=== PATIENT | male | born 1990 | race African-American/Black ===

== ENCOUNTER 2020-08-29 02:43 | Emergency (ER) | payer BC ==
[2020-08-29 04:36] VITALS: BMI 22.5
[2020-08-29 06:50] VITALS: BP 130/79; PULSE 70; TEMP 98.7
== END 2020-08-29 06:51 | disposition short-term general hospital (02) ==
LOC: JER 02:43
DX: F11.10 Opioid abuse, uncomplicated (principal)
CPT/HCPCS: 82962; 93005; 93010; 99283-25

== ENCOUNTER 2021-08-04 17:22 | Emergency (ER) | payer BC ==
[2021-08-04 17:28] VITALS: BP 99/67; PULSE 70; TEMP 98.6; BMI 20.7
[2021-08-04] MEDS ORDERED: SODIUM CHLORIDE 0.9% 500 ML INFUS.BAG IV ONE (20:54)
== END 2021-08-04 21:39 | disposition home or self-care (01) ==
LOC: JER 17:22
DX: F19.10 Other psychoactive substance abuse, uncomplicated (principal)
CPT/HCPCS: 99283-25

== ENCOUNTER 2021-08-04 22:19 | Inpatient (IN) | payer BC ==
[2021-08-04 23:03] VITALS: BMI 20.7
[2021-08-04] MEDS ORDERED: NALOXONE HCL 0.4 MG/ML VIAL IM PRN (23:05)
[2021-08-04] MEDS ORDERED: MAGNESIUM CITRATE 300 ML BOTTLE PO PRN (23:05)
[2021-08-04] MEDS ORDERED: IBUPROFEN 400 MG TABLET (FP) PO PRN (23:05)
[2021-08-04] MEDS ORDERED: BENZOCAINE/MENTHOL (CHLORASEPTIC ) LOZENGE MM PRN (23:05)
[2021-08-04] MEDS ORDERED: NICOTINE POLACRILEX 2 MG GUM BUC PRN (23:05)
[2021-08-04] MEDS ORDERED: LOPERAMIDE HCL 2 MG CAPSULE PO PRN (23:05)
[2021-08-04] MEDS ORDERED: hydrOXYzine PAMOATE 25 MG CAPSULE (FP) PO PRN (23:05)
[2021-08-04] MEDS ORDERED: P-EPHED 60MG/TRIPROLIDI 2.5MG TABLET PO PRN (23:05)
[2021-08-04] MEDS ORDERED: BISMUTH SUBSALICYLATE 524 MG/30 ML PO PRN (23:05)
[2021-08-04] MEDS ORDERED: ONDANSETRON *ODT* 4 MG TABLET SL PRN (23:05)
[2021-08-04] MEDS ORDERED: MAG HYDROX/AL HYDROX/SIMETH 30 ML UNIT-DOSE CUP PO PRN (23:05)
[2021-08-04] MEDS ORDERED: guaiFENesin 200 MG/10 ML 10 ML UNIT-DOSE CUPS PO PRN (23:05)
[2021-08-04] MEDS ORDERED: ACETAMINOPHEN 325 MG TABLET (FP) PO PRN ×2 (23:05)
[2021-08-04] MEDS ORDERED: MAGNESIUM HYDROX 2400MG/30ML ORAL SUSPENSION 30 ML CUP PO PRN (23:05)
[2021-08-04] MEDS ORDERED: IBUPROFEN 600 MG TABLET (FP) PO PRN (23:05)
[2021-08-04] MEDS ORDERED: DICYCLOMINE HCL 10 MG CAPSULE PO PRN (23:05)
[2021-08-04] MEDS ORDERED: NALOXONE HCL (KLOXXADO) 8 MG SPRAY NS PRN (23:05)
[2021-08-05] MEDS: PRENATAL VITAMINS W/ FOLIC ACID TABLET (FP) PO SCH (10:13)
[2021-08-05] MEDS: NICOTINE 14 MG/24 HOURS TOPICAL PATCH TD SCH (10:14)
[2021-08-05] MEDS ORDERED: methaDONE HCL 10 MG TABLET (FOR DETOX USE ONLY) PO ONE (10:20)
[2021-08-05] MEDS ORDERED: cloNIDine HCL 0.1 MG TABLET PO PRN (10:20)
[2021-08-05 14:21] LABS: CALCIUM 8.8 mg/dL (8.5-10.1); HEMATOCRIT 39.8 % (35.4-49); MCH 27.4 pg (25.7-33.7); MCHC 32.7 g/dl (32.0-35.9); MEAN CELL VOLUME 83.9 fl (80-96); MEAN PLT VOLUME 7.6 fl (7.5-11.1); PLATELET COUNT 322 10^3/uL (134-434); RBC 4.74 M/mm3 (4.00-5.60); RDW 14.2 % (11.9-15.9)
[2021-08-05 14:22] LABS: ALBUMIN 3.1 g/dl (3.4-5.0); BLOOD UREA NITROGEN 20.1 mg/dL (7-18)
[2021-08-05 14:26] LABS: BILIRUBIN,TOTAL 0.2 mg/dL (0.2-1); CREATININE 0.9 mg/dL (0.55-1.3); TOT PROT 6.4 g/dl (6.4-8.2)
[2021-08-05] MEDS: MELATONIN 5 MG TABLETS PO SCH (22:54)
[2021-08-05] MEDS: THIAMINE HCL 100 MG TABLET (FP) PO SCH (22:54)
[2021-08-05] MEDS: METHOCARBAMOL 500 MG TABLET PO PRN (22:56)
[2021-08-06] MEDS ORDERED: methaDONE HCL 10 MG TABLET (FOR DETOX USE ONLY) ONE (10:04)
[2021-08-06] MEDS: NICOTINE 14 MG/24 HOURS TOPICAL PATCH TD SCH (10:35)
[2021-08-06] MEDS: METHOCARBAMOL 500 MG TABLET PO PRN ×2 (10:35→22:57)
[2021-08-06] MEDS: PRENATAL VITAMINS W/ FOLIC ACID TABLET (FP) PO SCH (10:35)
[2021-08-06] MEDS: diazePAM 5 MG TABLET PO PRN ×2 (15:31→22:53)
[2021-08-06] MEDS: MELATONIN 5 MG TABLETS PO SCH (22:53)
[2021-08-06] MEDS: THIAMINE HCL 100 MG TABLET (FP) PO SCH (22:53)
[2021-08-07] MEDS: diazePAM 5 MG TABLET PO PRN ×2 (09:59→22:22)
[2021-08-07] MEDS ORDERED: methaDONE HCL 10 MG TABLET (FOR DETOX USE ONLY) PO ONE (10:00)
[2021-08-07] MEDS: METHOCARBAMOL 500 MG TABLET PO PRN (10:00)
[2021-08-07] MEDS: PRENATAL VITAMINS W/ FOLIC ACID TABLET (FP) PO SCH (10:01)
[2021-08-07] MEDS: NICOTINE 14 MG/24 HOURS TOPICAL PATCH TD SCH (10:02)
[2021-08-07] MEDS: MELATONIN 5 MG TABLETS PO SCH (22:19)
[2021-08-07] MEDS: THIAMINE HCL 100 MG TABLET (FP) PO SCH (22:19)
[2021-08-08 09:30] VITALS: BP 132/90; PULSE 115; TEMP 97.7
[2021-08-08] MEDS: NICOTINE 14 MG/24 HOURS TOPICAL PATCH TD SCH (10:38)
[2021-08-08] MEDS: PRENATAL VITAMINS W/ FOLIC ACID TABLET (FP) PO SCH (10:39)
[2021-08-09] MEDS ORDERED: methaDONE HCL 10 MG TABLET (FOR DETOX USE ONLY) PO ONE (10:00)
== END 2021-08-08 10:15 | disposition left against medical advice (07) | DRG 770 ==
LOC: YASAS 22:19 → Y3N 23:47
PROVIDERS: ADMIT Allergy & Immunology; ATTEND Surgery
PROC: HZ2ZZZZ Detoxification Services for Substance Abuse Treatment (ICD-10-PCS; principal; 2021-08-04)
DX: F11.23 Opioid dependence with withdrawal (principal); F14.20 Cocaine dependence, uncomplicated; F15.20 Other stimulant dependence, uncomplicated; F12.20 Cannabis dependence, uncomplicated; F17.210 Nicotine dependence, cigarettes, uncomplicated; F19.24 Other psychoactive substance dependence with psychoactive substance-induced mood disorder; J45.909 Unspecified asthma, uncomplicated; K21.9 Gastro-esophageal reflux disease without esophagitis; Z91.19 Patient's noncompliance with other medical treatment and regimen; Z59.01 Sheltered homelessness
CPT/HCPCS: 36415; 80053; 85027; 86780; 87811; C9803-CS; J0735; U0003; U0005

== ENCOUNTER 2021-09-05 16:33 | Inpatient (IN) | payer BC ==
[2021-09-05 19:46] VITALS: BMI 21.2
[2021-09-05] MEDS ORDERED: cloNIDine HCL 0.1 MG TABLET PO PRN (21:24)
[2021-09-05] MEDS ORDERED: ONDANSETRON *ODT* 4 MG TABLET SL PRN (21:24)
[2021-09-05] MEDS ORDERED: BISMUTH SUBSALICYLATE 524 MG/30 ML PO PRN (21:24)
[2021-09-05] MEDS ORDERED: DICYCLOMINE HCL 10 MG CAPSULE PO PRN (21:24)
[2021-09-05] MEDS ORDERED: LOPERAMIDE HCL 2 MG CAPSULE PO PRN (21:24)
[2021-09-05] MEDS ORDERED: IBUPROFEN 400 MG TABLET (FP) PO PRN (21:24)
[2021-09-05] MEDS ORDERED: MAGNESIUM CITRATE 300 ML BOTTLE PO PRN (21:24)
[2021-09-05] MEDS ORDERED: NICOTINE 10 MG CARTRIDGE (INHALER) IH PRN (21:24)
[2021-09-05] MEDS ORDERED: ACETAMINOPHEN 325 MG TABLET (FP) PO PRN ×2 (21:24)
[2021-09-05] MEDS ORDERED: BENZOCAINE/MENTHOL (CHLORASEPTIC ) LOZENGE MM PRN (21:24)
[2021-09-05] MEDS ORDERED: IBUPROFEN 600 MG TABLET (FP) PO PRN (21:24)
[2021-09-05] MEDS ORDERED: MAGNESIUM HYDROX 2400MG/30ML ORAL SUSPENSION 30 ML CUP PO PRN (21:24)
[2021-09-05] MEDS ORDERED: MAG HYDROX/AL HYDROX/SIMETH 30 ML UNIT-DOSE CUP PO PRN (21:24)
[2021-09-05] MEDS ORDERED: methaDONE HCL 10 MG TABLET (FOR DETOX USE ONLY) ONE (22:10)
[2021-09-05] MEDS: THIAMINE HCL 100 MG TABLET (FP) PO SCH (22:11)
[2021-09-05] MEDS: MELATONIN 5 MG TABLETS PO SCH (22:11)
[2021-09-05] MEDS ORDERED: methaDONE HCL 10 MG TABLET (FOR DETOX USE ONLY) PO ONE (22:15)
[2021-09-06] MEDS ORDERED: methaDONE HCL 10 MG TABLET (FOR DETOX USE ONLY) ONE (09:53)
[2021-09-06] MEDS ORDERED: ALBUTEROL SO4 HFA INHALER IH PRN (09:56)
[2021-09-06 10:34] LABS: HEMATOCRIT 37.8 % (35.4-49); HEMOGLOBIN 12.5 GM/dL (11.7-16.9); MCH 27.6 pg (25.7-33.7); MEAN CELL VOLUME 83.6 fl (80-96); PLATELET COUNT 354 10^3/uL (134-434); RBC 4.52 M/mm3 (4.00-5.60); RDW 14.7 % (11.9-15.9); WHITE BLOOD COUNT 3.9 K/mm3 (4.0-10.0)
[2021-09-06 10:42] LABS: ALBUMIN 3.2 g/dl (3.4-5.0)
[2021-09-06 10:43] LABS: BLOOD UREA NITROGEN 14.2 mg/dL (7-18)
[2021-09-06 10:44] LABS: BILIRUBIN,TOTAL 0.3 mg/dL (0.2-1); CALCIUM 9.1 mg/dL (8.5-10.1); TOT PROT 6.4 g/dl (6.4-8.2)
[2021-09-06] MEDS: PRENATAL VITAMINS W/ FOLIC ACID TABLET (FP) PO SCH (13:26)
[2021-09-06] MEDS: NICOTINE 14 MG/24 HOURS TOPICAL PATCH TD SCH (13:26)
[2021-09-06] MEDS: METHOCARBAMOL 500 MG TABLET PO PRN (13:41)
[2021-09-06] MEDS: THIAMINE HCL 100 MG TABLET (FP) PO SCH (23:22)
[2021-09-06] MEDS: MELATONIN 5 MG TABLETS PO SCH (23:22)
[2021-09-07] MEDS ORDERED: methaDONE HCL 10 MG TABLET (FOR DETOX USE ONLY) PO ONE (10:00)
[2021-09-07] MEDS: NICOTINE 14 MG/24 HOURS TOPICAL PATCH TD SCH (10:25)
[2021-09-07] MEDS: METHOCARBAMOL 500 MG TABLET PO PRN (10:26)
[2021-09-07] MEDS: PRENATAL VITAMINS W/ FOLIC ACID TABLET (FP) PO SCH (10:27)
[2021-09-07] MEDS: THIAMINE HCL 100 MG TABLET (FP) PO SCH (22:49)
[2021-09-07] MEDS: MELATONIN 5 MG TABLETS PO SCH (22:49)
[2021-09-08 09:22] VITALS: BP 114/62; PULSE 76; TEMP 97.8
[2021-09-09] MEDS ORDERED: methaDONE HCL 10 MG TABLET (FOR DETOX USE ONLY) PO ONE (10:00)
== END 2021-09-08 09:26 | disposition left against medical advice (07) | DRG 770 ==
LOC: YASAS 16:33 → Y3N 09-06 12:26
PROVIDERS: ADMIT Allergy & Immunology; ATTEND Surgery
PROC: HZ2ZZZZ Detoxification Services for Substance Abuse Treatment (ICD-10-PCS; principal; 2021-09-06)
DX: F11.23 Opioid dependence with withdrawal (principal); F14.20 Cocaine dependence, uncomplicated; F12.20 Cannabis dependence, uncomplicated; F17.210 Nicotine dependence, cigarettes, uncomplicated; J45.909 Unspecified asthma, uncomplicated; K21.9 Gastro-esophageal reflux disease without esophagitis; M54.50 Low back pain, unspecified; G89.29 Other chronic pain
CPT/HCPCS: 36415; 80053; 85027; 86780; C9803-CS; J0735; U0003; U0005